=== PATIENT | male | born 1980 | race Caucasian/White ===

== ENCOUNTER 2018-03-02 12:46 | Emergency (ER) | payer OTHER, BC ==
[~2018-03-02] VITALS: Ht 180.3 cm; Wt 134.1 kg
[~2018-03-02 12:46] MED LIST: AMARYL 2MG T2 MG/TAB PO; PRAVACHOL 20MG20 MG PO; PRAVACHOL 40MG40 MG PO; PRINZIDE 12.5 M1 TA1 PO; ZESTORETIC 12.51 TA1 PO; ZESTRIL40 MG PO; ZITHROMAX 250M250 MG PO
[2018-03-02 12:49] VITALS: TEMP 97.7
[2018-03-02] MEDS ORDERED: NORCO 325 MG-51 TAB PO (15:49)
[2018-03-02 17:19] VITALS: BP 140/91; PULSE 72
== END 2018-03-02 17:17 | disposition home or self-care (01) ==
LOC: COL.ER 12:46
DX: S86.812A Strain of other muscle(s) and tendon(s) at lower leg level, left leg, initial encounter (principal); W10.9XXA Fall (on) (from) unspecified stairs and steps, initial encounter; Y92.89 Other specified places as the place of occurrence of the external cause; Y99.0 Civilian activity done for income or pay
CPT/HCPCS: J1170; J1885; J3010; J7030; L1846

== ENCOUNTER 2018-07-22 15:15 | Outpatient (RCR) | payer OTHER ==
[~2018-07-22 15:15] MED LIST changes: +NORCO 325 MG-51 TAB PO
== END 2018-07-26 | disposition home or self-care (01) ==
LOC: MKS.ESL.PT
DX: S86.892D Other injury of other muscle(s) and tendon(s) at lower leg level, left leg, subsequent encounter (principal)

== ENCOUNTER 2018-08-10 08:00 | Outpatient (RCR) | payer OTHER | END 2018-08-16 09:17 | disposition home or self-care (01) | LOC: MKS.ESL.PT 08:00 | DX: Z47.89 Encounter for other orthopedic aftercare (principal) ==

== ENCOUNTER → 2020-07-03 | Outpatient (CLI) | payer BC | LOC: COL.RAD 07:26 | DX: N20.0 Calculus of kidney (principal); R31.0 Gross hematuria | CPT/HCPCS: Q9967 ==

== ENCOUNTER → 2020-08-04 | Outpatient (CLI) | payer BC | LOC: ZCOL.LAB 17:45 | DX: Z20.828 Contact with and (suspected) exposure to other viral communicable diseases (principal) ==

== ENCOUNTER → 2020-08-21 | Outpatient (CLI) | payer BC | LOC: BHSO 14:49 | DX: F50.81 Binge eating disorder (principal) ==

== ENCOUNTER → 2020-09-05 | Outpatient (CLI) | payer BC | LOC: BHSO 14:53 | DX: F50.81 Binge eating disorder (principal) ==

== ENCOUNTER → 2020-09-26 | Outpatient (CLI) | payer BC | LOC: BHSO 14:52 | DX: F50.81 Binge eating disorder (principal) ==